=== PATIENT | female | born 1955 | race Caucasian/White ===

== ENCOUNTER → 2021-01-23 13:19 | Outpatient (CLI) | payer BC, SELFPAY ==
--- NOTE | ~2021-01-23 | DEXA_ITS ---
Bone Density Report Name: VALERI KAUFFMAN Age: 65 Sex: Female Ethnicity: White Date of : 1955 Indication: postmenopausal; screening for osteoporosis; height loss; hysterectomy; Referring Provider: IVIS, ROSALBA Study: Bone densitometry was performed. Exam Date: January 23, 2021 Accession number: [id number] Bone Density: Region BMD T-score Z-score Classification AP Spine (L1-L4) 0.926 -1.1 0.5 Osteopenia Femoral Neck (Left) 0.693 -1.4 0.0 Osteopenia Total Hip (Left) 0.871 -0.6 0.5 Normal Femoral Neck (Right) 0.715 -1.2 0.2 Osteopenia Total Hip (Right) 0.902 -0.3 0.8 Normal Total Hip Mean 0.887 -0.5 0.7 Normal World Health Organization criteria for BMD impression classify patients as: Normal (T-score at or above -1.0), Osteopenia (T-score between -1.0 and -2.5), or Osteoporosis (T-score at or below -2.5). 10-year Fracture Risk(1): Major Osteoporotic Fracture 8.3% Hip Fracture 0.8% Reported Risk Factors: [place] (), Neck BMD=0.693, BMI=27.4 (1) FRAX(R) Version 3.08. Fracture probability calculated for an untreated patient. Fracture probability may be lower if the patient has received treatment. Previous Exams: Region Exam Age BMD T-score BMD Change BMD Change Date g/cm2 vs Baseline vs Previous AP Spine(L1-L4) 01/23/2021 65 0.926 -1.1 -0.015 -0.015 02/10/2018 62 0.941 -1.0 0.000 0.041* 02/09/2016 60 0.900 -1.3 -0.041* -0.001 02/06/2014 58 0.901 -1.3 -0.040* -0.040* 02/02/2012 56 0.941 -1.0 Total Hip(Left) 01/23/2021 65 0.871 -0.6 0.054* 0.043* 02/10/2018 62 0.828 -0.9 0.011 -0.028* 02/09/2016 60 0.856 -0.7 0.038* 0.019 02/06/2014 58 0.837 -0.9 0.019 0.019 02/02/2012 56 0.817 -1.0 Total Hip(Right) 01/23/2021 65 0.902 -0.3 -0.004 -0.006 02/10/2018 62 0.908 -0.3 0.003 -0.006 02/09/2016 60 0.914 -0.2 0.008 -0.013 02/06/2014 58 0.927 -0.1 0.021 0.021 02/02/2012 56 0.906 -0.3 *Denotes significance at 95% confidence level, LSC for AP Spine = 0.022 g/cm2, LSC for Total Hip = 0.027 g/cm2 Clinical Information Provided by Patient: Has used the following medications: Vitamin D, Calcium Has the following medical conditions: Hysterectomy Patient maximum height was 62.5 Menopause Age: 50 No
== END ==
PROVIDERS: PCP Internal Medicine; Visit Provider Obstetrics & Gynecology Gynecology
DX: Z78.0 Asymptomatic menopausal state (principal); M85.89 Other specified disorders of bone density and structure, multiple sites
CPT/HCPCS: 77080

== ENCOUNTER → 2022-05-01 13:34 | Outpatient (CLI) | payer BC, SELFPAY ==
--- NOTE | ~2022-05-01 | MM_ITS ---
EXAMINATION: MM screening julio BI w serena HISTORY: Screening mammogram TECHNIQUE: Craniocaudal and mediolateral oblique 3-D tomosynthesis images were obtained and synthetic 2-D images were generated. CAD analysis was submitted and interpreted. COMPARISON: No prior mammogram is available for comparison at this institution. BREAST PARENCHYMAL COMPOSITION: There are scattered areas of fibroglandular density. FINDINGS: There is no evidence of suspicious mass, calcification, or architectural distortion to sugg est malignancy in either breast. IMPRESSION: 1. No mammographic evidence of malignancy. 2. Recommend routine screening mammography in one year. BI-RADS Category 1: Negative Reviewed, dictated and finalized at location A. SERVICE ASSOCIATE
== END ==
PROVIDERS: PCP Nurse Practitioner; Visit Provider Nurse Practitioner
DX: Z12.31 Encounter for screening mammogram for malignant neoplasm of breast (principal)
CPT/HCPCS: 77063; 77067

== ENCOUNTER 2023-08-07 12:54 | Outpatient (CLI) | payer MEDICARE, SELFPAY ==
--- NOTE | ~2023-08-07 | XR_ITS ---
AP and lateral views of the right hip Clinical history: Pain Findings: No acute fracture or dislocation is seen. Osseous alignment is anatomic. Right hip joint is preserved. Soft tissues are unremarkable. Impression: No significant abnormality is seen. Reviewed, dictated and finalized at location . Impression: No significant abnormality is seen.
--- NOTE | ~2023-08-07 | MM_ITS ---
EXAMINATION: MM screening julio BI w serena HISTORY: Screening TECHNIQUE: Craniocaudal and mediolateral oblique 3-D tomosynthesis images were obtained and synthetic 2-D images were generated. CAD analysis was submitted and interpreted. COMPARISON: 05/01/2022 BREAST PARENCHYMAL COMPOSITION: There are scattered areas of fibroglandular density. FINDINGS: There is no evidence of suspicious mass, calcification, or architectural distortion to sugg est malignancy in either breast. There has been no suspicious interval change. IMPRESSION: 1. No mammographic evidence of malignancy. 2. Recommend routine screening mammography in one year. BI-RADS Category 1: Negative Reviewed, dictated and finalized at location B.
--- NOTE | ~2023-08-07 | DEXA_ITS ---
Bone Density Report Name: VALERI KAUFFMAN Age: 67 Sex: Female Ethnicity: White Date of : 1955 Indication: osteopenia; height loss; hysterectomy; Referring Provider: DALTON RINALDI Study: Bone densitometry was performed. Exam Date: August 07, 2023 Accession number: [id number] Bone Density: Region BMD T-score Z-score Classification AP Spine (L1-L4) 0.928 -1.1 0.7 Osteopenia Femoral Neck (Left) 0.658 -1.7 -0.2 Osteopenia Total Hip (Left) 0.839 -0.8 0.4 Normal Femoral Neck (Right) 0.691 -1.4 0.1 Osteopenia Total Hip (Right) 0.893 -0.4 0.9 Normal Total Hip Mean 0.866 -0.6 0.7 Normal World Health Organization criteria for BMD impression classify patients as: Normal (T-score at or above -1.0), Osteopenia (T-score between -1.0 and -2.5), or Osteoporosis (T-score at or below -2.5). 10-year Fracture Risk(1): Major Osteoporotic Fracture 9.8% Hip Fracture 1.3% Reported Risk Factors: [place] (), Neck BMD=0.658, BMI=26.9 (1) FRAX(R) Version 3.08. Fracture probability calculated for an untreated patient. Fracture probability may be lower if the patient has received treatment. Previous Exams: Region Exam Age BMD T-score BMD Change BMD Change Date g/cm2 vs Baseline vs Previous AP Spine(L1-L4) 08/07/2023 67 0.928 -1.1 -0.013 0.002 01/23/2021 65 0.926 -1.1 -0.015 -0.015 02/10/2018 62 0.941 -1.0 0.000 0.041* 02/09/2016 60 0.900 -1.3 -0.041* -0.001 02/06/2014 58 0.901 -1.3 -0.040* -0.040* 02/02/2012 56 0.941 -1.0 Total Hip(Left) 08/07/2023 67 0.839 -0.8 0.022 -0.032* 01/23/2021 65 0.871 -0.6 0.054* 0.043* 02/10/2018 62 0.828 -0.9 0.011 -0.028* 02/09/2016 60 0.856 -0.7 0.038* 0.019 02/06/2014 58 0.837 -0.9 0.019 0.019 02/02/2012 56 0.817 -1.0 Total Hip(Right) 08/07/2023 67 0.893 -0.4 -0.012 -0.009 01/23/2021 65 0.902 -0.3 -0.004 -0.006 02/10/2018 62 0.908 -0.3 0.003 -0.006 02/09/2016 60 0.914 -0.2 0.008 -0.013 02/06/2014 58 0.927 -0.1 0.021 0.021 02/02/2012 56 0.906 -0.3 *Denotes significance at 95% confidence level, LSC for AP Spine = 0.022 g/cm2, LSC for Total Hip = 0.027 g/cm2 Clinical Information Provided by Patient: Has used the following medications: Vitamin D Has the following medical conditions: Hysterectomy Darius
== END 2023-08-07 12:55 ==
PROVIDERS: PCP Nurse Practitioner
DX: Z12.31 Encounter for screening mammogram for malignant neoplasm of breast (principal); Z78.0 Asymptomatic menopausal state; M25.551 Pain in right hip; M85.89 Other specified disorders of bone density and structure, multiple sites
CPT/HCPCS: 73502; 77063; 77067; 77080

== ENCOUNTER 2024-09-27 12:03 | Outpatient (CLI) | payer MEDICARE, SELFPAY ==
--- NOTE | ~2024-09-27 | MM_ITS ---
EXAMINATION: MM screening julio BI w serena HISTORY: Screening TECHNIQUE: Craniocaudal and mediolateral oblique 3-D tomosynthesis images were obtained and synthetic 2-D images were generated. CAD analysis was submitted and interpreted. COMPARISON: Comparison to multiple prior studies sequentially, with oldest reviewed study dated 04/2022. BREAST PARENCHYMAL COMPOSITION: Not dense: There are scattered areas of fibroglandular density. FINDINGS: There is no evidence of suspicious mass, calcification, or architectural distortion to sugg est malignancy in either breast. There has been no suspicious interval change. IMPRESSION: 1. No mammographic evidence of malignancy. 2. Recommend routine screening mammography in one year. BI-RADS Category 1: Negative Reviewed, dictated and finalized at location B.
== END 2024-09-27 12:04 | disposition home or self-care (01) ==
LOC: MICIMG 12:04
PROVIDERS: PCP Nurse Practitioner; Visit Provider Nurse Practitioner
DX: Z12.31 Encounter for screening mammogram for malignant neoplasm of breast (principal)
CPT/HCPCS: 77063; 77067